=== PATIENT | female | born 1955 | race Caucasian/White ===

== ENCOUNTER → 2016-03-31 | Day surgery (SDC) | payer OTHER ==
[~2016-03-31] VITALS: Ht 165.1 cm; Wt 54.1 kg
[~2016-03-31] MED LIST: ABILIFY2 MG PO; BACTRIM DS1 TAB PO; CIPRO500 MG PO; EFFEXOR XR 3737.5 MG PO; EFFEXOR XR75 MG PO; KEFLEX500 MG PO; LINZESS145 MCG PO; NUCYNTA100 MG PO; NUCYNTA50 MG PO; PERCOCET 10-321 EACH PO; XANAX1 MG PO
--- NOTE | ~2016-03-31 | OR ---
PATIENT'S NAME: SAVANAH PIMENTEL [facility] AGE: 60 Y [address] ROOM: [place] [address] [place] [facility] [place] DATE: 03/31/2016 OR/Procedure Report DISCHARGE DATE: FAMILY PHYSICIAN: Alaina Bowling MD ATTENDING PHYSICIAN: Kleber Mcgill SURGEON: Kleber Mcgill DO [employer] OPERATOR: Staff. 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 PROCEDURES: 1. Left index finger hardware removal. 2. Left index finger arthrodesis with an Acutrak screw. ANESTHESIA: IV regional with sedation. ESTIMATED BLOOD LOSS: Less than 10 mL. TOURNIQUET TIME: Less than 1 hour at 250 mmHg. COMPLICATION: None. DISPOSITION: Stable to recovery room. JUSTIFICATION FOR PROCEDURE: Savanah Pimentel is a 60-year-old female with a history of previous left index finger proximal interphalangeal joint arthrodesis. She went on to an asymptomatic nonunion and initially did well with a fibrous union at the repair site. She has a history of scleroderma, and the skin overlying the hardware eventually broke down exposing the hardware. She was counseled as to treatment options, risks versus benefits, and necessary afterward care. She gave informed consent to proceed with the hardware removal and a repeat arthrodesis of the index finger and any indicated procedures. PROCEDURE IN DETAIL: The patient was properly identified, both verbally and by name tag. She was taken to the operating suite, placed on the operating table in the supine position. The anesthesiologist administered an IV regional anesthetic in the left upper extremity and IV sedation. Once adequate anesthesia was obtained, left upper extremity was prepped and PATIENT'S NAME: SAVANAH PIMENTEL [facility] AGE: 60 Y [address] ROOM: [place] [address] [place]: [facility] [place] DATE: 03/31/2016 OR/Procedure Report DISCHARGE DATE: FAMILY PHYSICIAN: Alaina Bowling MD ATTENDING PHYSICIAN: Kleber Mcgill draped in usual sterile fashion. The extremity was exsanguinated with an Esmarch bandage and the tourniquet inflated to level of the arm to 250 mmHg. A #15 blade knife was used to make a curvilinear incision centered around the dorsal aspect of left index finger proximal interphalangeal joint arthrodesis site. A dorsal flap of skin and soft tissue was elevated. The hardware was visualized and easily removed with the appropriate screwdriver. There was no gross evidence of infection. The PIP joint had gone on to a fibrous union and had less than 5-degree arc of motion. It was stable to varus valgus, AP, and pivoting stresses. The fibrous union was taken down sharply. The bone ends were freshened up sharply and curettage was applied. Preoperatively, prior to her initial surgery, she was noted to have avascular necrotic changes in the bone on both sides of the joint. This was not much different on this visit. The bone was debrided down to cancellous bone on both sides of the intended arthrodesis and then the arthrodesis was stabilized by application of a single Acutrak screw placed from the proximal phalanx into the middle phalanx holding the joint in about a 65-degree flexion position. This recreated her normal anatomic cascade for this finger and was felt to be the best compromise between range of motion and grasping function. The construct was visualized in multiple planes fluoroscopically from AP to lateral. The hardware was in good position. There was good bony apposition and compression. Clinically, the construct was stable to external maneuvers. The wound was copiously irrigated with saline. The tourniquet was let down after less than 1 hour and good capillary refill was noted distally. Hemostasis was obtained with minimal bipolar electrocautery and direct pressure. The incision was closed with 5-0 nylon suture in an interrupted mattress stitch fashion. A sterile bulky bundle dressing was applied splinting the operative digit in its fused position. The patient was aroused from IV sedation, taken to the recovery room in good condition. Immediate postoperative examination in the recovery room showed good capillary refill distally in all 5 digits. Light touch sensation and motor function were intact in the radial, ulnar, and median distributions. DO ZULEMA KULKARNI/elderl /[id number] d: 04/21/16 0112 t: 05/01/16 1751, OPERATIVE SUMMARY
== END ==
LOC: GPOC 02-17 17:00 → GSDC 02-21 07:00 → GPOC 02-21 17:00 → GSDC 02-21 17:00
PROC: [UNRECOGNIZED PROCEDURE] (principal; 2016-03-31)
DX: S62.611K Displaced fracture of proximal phalanx of left index finger, subsequent encounter for fracture with nonunion (principal); F32.9 Major depressive disorder, single episode, unspecified; G43.909 Migraine, unspecified, not intractable, without status migrainosus; M81.0 Age-related osteoporosis without current pathological fracture; Z87.891 Personal history of nicotine dependence; Z87.442 Personal history of urinary calculi; Z98.890 Other specified postprocedural states; Z79.899 Other long term (current) drug therapy
CPT/HCPCS: J0690; J2001; J3010; J7030

== ENCOUNTER → 2016-06-05 | Day surgery (SDC) | payer OTHER ==
[~2016-06-05] VITALS: Ht 165.1 cm; Wt 55.8 kg
--- NOTE | ~2016-06-05 | OR ---
PATIENT'S NAME: SAVANAH PIMENTEL [facility] AGE: 61 Y [address] ROOM: [place] [id number] LOCATION: [facility] – [place] ADMIT DATE: 06/05/2016 OR/Procedure Report DISCHARGE DATE: FAMILY PHYSICIAN: Alaina Bowling MD ATTENDING PHYSICIAN: Kleber Mcgill SURGEON: Kleber Mcgill DO GEOINT ANALYST: Staff. 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 PROCEDURE: Left ring finger proximal interphalangeal joint fusion. ANESTHESIA: IV regional with sedation. ESTIMATED BLOOD LOSS: Less than 20 mL. TOURNIQUET TIME: Less than 1 hour at 250 mmHg. COMPLICATION: None. DISPOSITION: Stable to recovery room. JUSTIFICATION FOR PROCEDURE: Savanah Pimentel is a 61-year-old female with a history of severe scleroderma with multiple digital contractures. She has had good results with previous proximal interphalangeal joint fusions in the past to get her fingers into more useful position in her hands. She was counseled as to treatment options, risks versus benefits, and necessary afterward care regarding her left ring finger, which was the most symptomatic digit, and she gave informed consent to proceed with a left ring finger proximal interphalangeal joint fusion and any indicated procedures. PROCEDURE IN DETAIL: The patient was properly identified, both verbally and by name tag. She was taken to the operating suite and placed in operating table in the supine position. The anesthesiologist administered IV regional anesthetic in the left upper extremity and IV sedation. Once adequate anesthesia was obtained, left upper extremity was prepped and draped in usual sterile fashion. The extremity was exsanguinated with an Esmarch bandage and the tourniquet inflated to level of the arm to 250 mmHg. PATIENT'S NAME: SAVANAH PIMENTEL [facility] AGE: 61 Y [address] ROOM: [place] [address] LOCATION: [facility] – [place] ADMIT DATE: 06/05/2016 OR/Procedure Report DISCHARGE DATE: FAMILY PHYSICIAN: Alaina Bowling MD ATTENDING PHYSICIAN: Kleber Mcgill A #15 blade knife was used to make a curvilinear incision centered around the dorsal aspect of left ring finger over the proximal interphalangeal joint. Under loupe magnification, careful blunt dissection was carried down through the superficial to the deep fascia. The skin had some areas of calcium deposition, which were full-thickness from the surface of the skin down to the underlying bone and the joint capsule. These areas were debrided. A full- thickness skin flap was elevated and retracted and the dorsal aspect of the PIP joint was visualized. The extensor mechanism had been essentially destroyed by her underlying disease process and the PIP joint was sitting at about 120-125 degrees of hyperflexion. The head of the proximal phalanx was removed sharply with a rongeur cutting it off square to the long axis of the bone with slight flexion to the surface of the bone distally such that it would create an appropriate 40 or so degree angle at the PIP joint for fusion. The middle phalanx was treated in the similar way and both bone surfaces were brought down to bleeding cancellous bone in the subchondral area. The cut of the bones was planned so that the finger would sit at about 40-45 degree PIP flexion position for an optimal compromise between flexion and extension. The wound was copiously irrigated with saline. The intended fusion mass was visualized fluoroscopically. It was found to be well-aligned. Digital alignment with the adjacent digits was checked and was also found to be acceptable. The proximal phalanx was then affixed to the middle phalanx by application of a headless screw. This was accomplished by 1st transfixing the 2 bones with a K-wire from the dorsal aspect of the proximal phalanx to the center of the shaft of the middle phalanx. Once fluoroscopic visualization confirmed central placement of the K-wire, the appropriate size screw was advanced over the K-wire after drilling the entry hole. The headless cannulated screw was seen to compress the arthrodesis site and stabilize the intended fusion mass quite well. There was no gross motion after placement of the screw. Care was taken to bury the screw head within the bone so there would be no prominence dorsally. The wound was copiously irrigated with saline. The finger was visualized in multiple planes from AP to lateral after removing the temporary K-wire. The hardware was in good position, the joint was well-approximated and compressed, and the alignment was excellent. The tourniquet was let down after less than 1 hour. The digital blockade of 0.25% Marcaine without epi was placed for postoperative pain control. The wound was copiously irrigated with saline. The soft tissue sleeve was then approximated with 5-0 Nylon suture in interrupted mattress stitch fashion. A sterile bulky bundle dressing was applied after ensuring a good capillary refill was present distally. The patient was aroused from IV sedation, taken to the recovery room in good condition. Immediate postoperative examination in the recovery room showed good capillary refill distally in all 5 digits. Light touch sensation, motor function distally were intact grossly in the radial, ulnar, and median distributions. PATIENT'S NAME: SAVANAH PIMENTEL [facility] AGE: 61 Y [address] ROOM: [place] [address] LOCATION: [facility] – [place] ADMIT DATE: 06/05/2016 OR/Procedure Report DISCHARGE DATE: FAMILY PHYSICIAN: Alaina Bowling MD ATTENDING PHYSICIAN: Kleber Mcgill KLEBER MCGILL DO NTM/modl /[id number] d: 06/14/16 0006 t: 06/19/16 1950, OPERATIVE SUMMARY
== END | disposition disaster alternative care site (69) ==
LOC: GPOC 05-31 09:00 → GSDC 09:00
PROC: [UNRECOGNIZED PROCEDURE] (principal; 2016-06-05)
DX: M24.542 Contracture, left hand (principal); M19.042 Primary osteoarthritis, left hand; S63.235A Subluxation of proximal interphalangeal joint of left ring finger, initial encounter; M34.89 Other systemic sclerosis; F32.9 Major depressive disorder, single episode, unspecified; G43.909 Migraine, unspecified, not intractable, without status migrainosus; M81.0 Age-related osteoporosis without current pathological fracture; Z87.891 Personal history of nicotine dependence; Z98.890 Other specified postprocedural states; Z87.442 Personal history of urinary calculi; Z79.899 Other long term (current) drug therapy
CPT/HCPCS: C1713; C1769; J0690; J7120